=== PATIENT | male | born 1965 | race African-American/Black ===

== ENCOUNTER 2019-03-01 21:18 | Inpatient (IN) | payer OTHER ==
[~2019-03-01] VITALS: Ht 175.3 cm; Wt 92.0 kg
[2019-03-01 21:25] VITALS: BP 184/90
[2019-03-01 21:38] LABS: HEMATOCRIT 44.4 % (42.0-52.0); HEMOGLOBIN 15.1 gm/dL (14.0-18.0); MCH 29.8 pg (26.0-34.0); MCHC 33.9 g/dL (28.0-37.0); MCV 87.8 fL (80.0-100.0); MPV 9.2 fl. (7.2-11.1); NUCLEATED RBCS 0 /100WBC; PLATELET COUNT* 189 thou/uL (150-400); RBC 5.06 mil/uL (4.50-6.00); RDW-CV 13.4 % (10.5-14.5); WBC 5.4 thou/uL (4.0-11.0)
[2019-03-01 21:45] LABS: ANION GAP 7 mmol/L (7-16); BUN 8 mg/dL (7-18); CALCIUM 8.8 mg/dL (8.5-10.1); CHLORIDE 107 mmol/L (98-107); CO2 29 mmol/L (21-32); CREATININE 1.1 mg/dL (0.6-1.3); GLUCOSE 152 mg/dL (70-99); SODIUM 143 mmol/L (136-145)
[2019-03-01 21:58] LABS: ALBUMIN 3.4 g/dL (3.4-5.0); ALKALINE PHOSPHATASE 106 U/L (46-116); LIPASE 157 U/L (73-393); NT-PRO BRAIN NAT PEPTIDE 27 pg/mL (<300); SGOT 25 U/L (15-37); SGPT 41 U/L (30-65); TOTAL BILIRUBIN 0.2 mg/dL (<0.1-1.0); TOTAL PROTEIN 6.6 g/dL (6.4-8.2); TROPONIN-I LEVEL <0.06 ng/mL (<0.06)
[2019-03-01 22:02] LABS: PROTIME 10.5 Seconds (9.20-11.50)
[2019-03-01 22:46] LABS: ABSOLUTE BASOPHILS 0.1 thou/uL (0.0-0.2); ABSOLUTE LYMPHOCYTES 2.4 thou/uL (0.8-5.3); ABSOLUTE MONOCYTES 0.3 thou/uL (0.0-1.2); ABSOLUTE NEUTROPHILS 1.7 thou/uL (1.6-8.1); PLATELET ESTIMATE ADEQUATE
[2019-03-02] VITALS (7 sets, daily range): BP systolic 115–150; BP diastolic 66–78
[2019-03-02 00:33] LABS: BE 0.2 mmol/L (-2 to +3); PCO2 43.8 mmHg (35.0-45.0); PO2 65.3 mmHg (75.0-100.0); pH 7.383 (7.340-7.450)
[2019-03-02] MEDS ORDERED: SPIRONOLACT/HCT1 TA1 PO (03:31)
[2019-03-02] MEDS ORDERED: NORVASC5 M1 PO (03:32)
[2019-03-02] MEDS ORDERED: FLOMAX0.4 MG PO (03:32)
--- NOTE | 2019-03-02 04:32 | NUR ---
RECEIVED PT FROM ER PER CART ACCOMPANIED BY DAVIAN CHAN AT APPROX 0120. PT IS AWAKE AND ORIENTED X4. PUNCH MACHINE OPERATOR TRACING SR. VSS ON BIPAP, spO2 97%. NO DESATURATIONS NOTED. ADMISSION ASSESSMENT DONE AND CHARTED. PT DENIES PAIN OF THIS TIME. PT ORIENTED ON ROOM SET UP AND THE USE OF CALL LIGHT. BED LOCKED AND IN LOWEST POSITION. BIPAP WELL TOLERATED. PT IS ABLE TO SLEEP MOST OF THE NIGHT. HOURLY ROUNDING DONE FOR SAFETY.
--- NOTE | 2019-03-02 10:44 | EKG ---
[place] [address] ELECTROCARDIOGRAM REPORT Name: RONNIE RAMOS Room: [address] ADM IN [facility].#: [id number] Admission: 03/02/19 Attend Phys: Michele Pineda MD Discharge: Date of : 63 Report #: [id number] THIS REPORT FOR: //name// [facility] ED Test Date: 2019-03-01 Test Time: 21:21:39 Pat Name: RONNIE RAMOS Department: Room: [facility] Gender: M Fisher [place]: AJ : 1965 Requested By: Andra Schaefer Order Number: [id number] MD: Claudio Martinez Measurements Intervals [place] Rate: 60 P: -38 IA: 165 QRS: 19 QRSD: 87 T: -28 QT: 367 QTc: 367 Interpretive Statements Sinus rhythm Anteroseptal infarct, old, possible Borderline T abnormalities, inferior leads Baseline wander in lead(s) V6 No previous ECG available for comparison Electronically Signed On 03-02-2019 10:43:57 CDT by Claudio Martinez [email or web address] <ELECTRONICALLY SIGNED> By: Claudio Martinez MD, FACC 03/02/19 1043 20 20 Claudio Martinez MD, FAC /EPI
--- NOTE | 2019-03-02 12:00 | NUR ---
ASSUMED CARE OF PT AT 0730. PT RESTING IN BED WITH BIPAP IN PLACE. 02 SAT 98%. PT A&0X4, DENIES ANY PAIN. TRACING SR ON THE WAREHOUSE REPRESENTATIVE. PT UP AD ANGELA. PT TITRATED TO 2L NC FOR MEALS AND IS TOLERATING 2L NC WELL. DENIES ANY SHORTNESS OF BREATH. PT GOAL FOR TODAY IS TITRATE OXYGEN, IV STEROIDS ABX, AM ASSESSMENT CHARTED. MEDICATIONS PER MAR. PT REPOSITIONS SELF. HOURLY ROUNDING OBSERVED. BED IN LOW POSITION. CALL LIGHT WITHIN REACH. WILL CONTINUE PLAN OF CARE.
[2019-03-02 12:28] LABS: AMP/METHAMP Negative (Negative); BARBITURATES Negative (Negative); BENZODIAZEPINES Negative (Negative); COCAINE Negative (Negative); METHADONE Negative (Negative); OPIATES Negative (Negative); PCP Negative (Negative); THC Negative (Negative)
--- NOTE | 2019-03-02 17:06 | NUR ---
NO ACUTE CHANGES THROUGHOUT SHIFT. REFER TO CHARTING. PT TITRATED TO ROOM AIR. DENIES ANY SHORTNESS OF BREATH. CONTINUES TO TRACE SR/ST ON THE PERFORMING ARTS TECHNICIANS. RATE LOW 100'S. PT UP AD ANGELA IN ROOM. PROGRESSING TOWARDS GOALS. VISITORS AT BEDSIDE THROUGHOUT SHIFT. MEDICATIONS PER AUG. PT REPOSITIONS SELF. HOURLY ROUNDING OBSERVED. BED IN LOW POSITION. CALL LIGHT WITHIN REACH, WILL CONTINUE PLAN OF CARE.
[2019-03-03] VITALS: BP 128/70
[2019-03-03 04:00] VITALS: BP 117/64
--- NOTE | 2019-03-03 04:33 | NUR ---
ASSUMED PT CARE AT APPROX 1930. PT IS AWAKE AND ORIENTED X4. VSS ON ROOM AIR. CONFIDENTIAL SECRETARY IN PLACE TRACING SR/ST. THERE IS 1 SHORT NON SUSTAINED EPISODE OF ST AT 165. PT DENIES CHEST PAIN AND SOA. ASSESSMENT DONE AND CHARTED. PT IS ABLE TO SLEEP MOST OF THE NIGHT. CALL LIGHT WITHIN REACH. HOURLY ROUNDING DONE FOR PT SAFETY.
[2019-03-03 05:23] LABS: HEMATOCRIT 43.6 % (42.0-52.0); HEMOGLOBIN 14.6 gm/dL (14.0-18.0); MCH 29.2 pg (26.0-34.0); MCHC 33.6 g/dL (28.0-37.0); MCV 87.2 fL (80.0-100.0); NUCLEATED RBCS 0 /100WBC; PLATELET COUNT* 198 thou/uL (150-400); RDW-CV 14.2 % (10.5-14.5); WBC 15.3 thou/uL (4.0-11.0)
[2019-03-03 06:31] LABS: ABSOLUTE LYMPHOCYTES 1.1 thou/uL (0.8-5.3); ABSOLUTE MONOCYTES 0.3 thou/uL (0.0-1.2); ABSOLUTE NEUTROPHILS 13.9 thou/uL (1.6-8.1); ANISOCYTOSIS 1+; PLATELET ESTIMATE ADEQUATE; POIKILOCYTOSIS 1+
[2019-03-03 08:00] VITALS: BP 129/77
[2019-03-03 12:00] VITALS: BP 154/86
--- NOTE | 2019-03-03 13:50 | NUR ---
Pt is A&O. Resides at home. Active and independent. No DME. No hx of HH or SNF. Goal is home at ak. Following.
[2019-03-03 16:00] VITALS: BP 139/81
--- NOTE | 2019-03-03 16:06 | 2DMMODE ---
[place] [address] 2 D/M-MODE ECHOCARDIOGRAM Name: RONNIE RAMOS Room: [address] IN [facility]#: [id number] Admission: 03/02/19 Attend Phys: Michele Pineda, Discharge: Date of : 63 Date of Service: 03/03/19 1606 Report #: [id number] THIS REPORT FOR: //name// APPROVED REPORT Study performed: 03/03/2019 14:50:18 EXAM: Comprehensive 2D, Doppler, and color-flow Echocardiogram Patient Location: In-Patient Room #: [facility] BSA: 2.07 HR: 103 bpm BP: 154/86 mmHg Other Information Study Quality: Good Indications Dyspnea 2D Dimensions IVSd: 11.92 (7-11mm) LVOT Diam: 20.18 (18-24mm) LVDd: 45.69 mm PWd: 10.12 (7-11mm) Ascending Ao: 29.43 (22-36mm) LVDs: 23.95 (25-40mm) Aortic Root: 28.26 mm Volumes Left Atrial Volume (Systole) LA ESV Index: 21.40 mL/m2 Aortic Valve AoV Peak Olman.: 1.83 m/s AO Peak Gr.: 13.35 mmHg LVOT Max P.15 mmHg AO Mean Gr.: 6.68 mmHg LVOT Mean P.97 mmHg LVOT Max V: 1.43 m/s AO V2 VTI: 28.65 cm LVOT Mean V: 0.91 m/s YOLA (VTI): 2.89 cm2 LVOT V1 VTI: 25.90 cm Mitral Valve E/A Ratio: 0.70 MV Decel. Time: 283.86 ms MV E Max Olman.: 0.64 m/s MV PHT: 82.32 [place] [address] 2 D/M-MODE ECHOCARDIOGRAM Name: RONNIE RAMOS Room: [address] IN ..#: [id number] Admission: 03/02/19 Attend Phys: Michele Pineda, Discharge: Date of : 63 Date of Service: 03/03/19 1606 Report #: [id number] MVA (PHT): 2.67 cm2 TDI E/Lateral E': 4.92 E/Medial E': 6.40 Medial E' Olman.: 0.10 m/s Lateral E' Olman.: 0.13 m/s Pulmonary Valve PV Peak Olman.: 1.07 m/s PV Peak Gr.: 4.60 mmHg Tricuspid Valve RAP Estimate: 5.00 mmHg TR Peak Gr.: 24.22 mmHg RVSP: 29.22 mmHg PA Pressure: 29.22 mmHg Left Ventricle The left ventricle is normal size. There is normal LV segmental wall motion. There is normal left ventricular wall thickness. Left ventricular systolic function is normal. The left ventricular ejection fraction is within the normal range. LVEF is 60-65%. Grade I - abnormal relaxation pattern. Right Ventricle The right ventricle is normal size. The right ventricular systolic function is normal. Atria The left atrium size is normal. The right atrium size is normal. Aortic Valve The aortic valve is normal in structure. No aortic regurgitation is present. There is no aortic valvular stenosis. Mitral Valve The mitral valve is normal in structure. Trace mitral regurgitation. No evidence of mitral valve stenosis. Tricuspid Valve The tricuspid valve is normal in structure. Mild tricuspid regurgitation. estimated pa pressur 30 mm Hg Pulmonic Valve The pulmonary valve is normal in structure. There is no pulmonic [place] [address] 2 D/M-MODE ECHOCARDIOGRAM Name: RONNIE RAMOS Room: [address]#: [id number] Admission: 03/02/19 Attend Phys: Michele Pineda, Discharge: Date of : 63 Date of Service: 03/03/19 1606 Report #: [id number] Great Vessels The aortic root is normal in size. IVC is normal in size and collapses >50% with inspiration. Pericardium There is no pericardial effusion. <Conclusion> Left ventricular systolic function is normal. The left ventricular ejection fraction is within the normal range. <ELECTRONICALLY SIGNED> By: Mann Beckford MD, [facility] 03/03/19 1606 05 160 Mann Beckford MD, FAC /INF
--- NOTE | 2019-03-03 19:39 | NUR ---
ASSUMED PT CARE AROUND 0700. PT NOTED TO BE PLEASANT WITH NO C/O PAIN OR DISCOMFORT. ASSESSMENT COMPLETED ET CHARTED. HOURLY ROUNDS COMPLETE. PT IS CONCERNED ABOUT GETTING OUT IN TIME TO BE IN THE [facility] FOR HIS [place] IN A FEW DAYS. TO BE STAYED BY HIS SIDE MOST OF THE DAY. PT IS COMPLIANT WITH HIS CARES. TRACED SR ON THE CARD MONITOR THIS SHIFT.
[2019-03-03 20:00] VITALS: BP 143/84
[2019-03-04 00:16] VITALS: BP 137/78
--- NOTE | 2019-03-04 04:44 | NUR ---
PT A&O X4, MAINTAINED O2 SAT >92% ON ROOM AIR DURING SHIFT. NO C/O ON SOA OR EXACERBATION OF SYMPTOMS. PT HAD NO C/O OF PAIN OR DISCOMFORT AND STATED HE IS FEELING MUCH BETTER AND IS LOOKING FORWARD TO DISCHARGE. SLEPT WELL THROUGH OUT NIGHT, VOICED NO CONCERNS, ALL NEEDS HAVE BEEN MET AT THIS TIME. RESTING IN BED WITH CALL LIGHT WITHIN REACH.
[2019-03-04 08:00] VITALS: BP 139/82
[2019-03-04] MEDS ORDERED: PROTONIX40 M1 PO (10:32)
[2019-03-04] MEDS ORDERED: LEVAQUIN 500 M500 M2 PO (10:32)
[2019-03-04] MEDS ORDERED: VENTOLIN HFA 1818 GM INH (10:33)
[2019-03-04] MEDS ORDERED: SYMBICORT160 MCG/4. INH (10:33)
[2019-03-04] MEDS ORDERED: PREDNISONE 10 M10 MG PO (10:34)
[2019-03-04] MEDS ORDERED: FLOMAX0.4 MG PO (10:34)
[2019-03-04 10:42] VITALS: BP 139/82
== END 2019-03-04 12:02 | disposition home or self-care (01) | DRG 189 ==
LOC: M.ERS 21:18 → M.TBA-ER 03-02 00:08 → M.2W 03-02 00:08
PROVIDERS: Emergency Medicine; ADMIT Internal Medicine
PROC: 5A09357 Assistance with Respiratory Ventilation, Less than 24 Consecutive Hours, Continuous Positive Airway Pressure (ICD-10-PCS; principal; 2019-03-02)
DX: J96.01 Acute respiratory failure with hypoxia (principal); J45.901 Unspecified asthma with (acute) exacerbation; E11.9 Type 2 diabetes mellitus without complications; I10 Essential (primary) hypertension; Z88.8 Allergy status to other drugs, medicaments and biological substances; Z88.0 Allergy status to penicillin; Z91.013 Allergy to seafood; Z23 Encounter for immunization

== ENCOUNTER 2021-06-29 19:18 | Emergency (ER) | payer OTHER ==
[~2021-06-29] VITALS: Ht 175.3 cm; Wt 87.5 kg
[~2021-06-29 19:18] MED LIST: FLOMAX0.4 MG PO; LEVAQUIN 500 M500 M2 PO; NORVASC5 M1 PO; PREDNISONE 10 M10 MG PO; PROTONIX40 M1 PO; SPIRONOLACT/HCT1 TA1 PO; SYMBICORT160 MCG/4. INH; VENTOLIN HFA 1818 GM INH
[2021-06-29] MEDS ORDERED: METFORMIN HCL500 M3 PO (19:57)
[2021-06-29 22:13] VITALS: BP 149/93
== END 2021-06-29 22:46 | disposition home or self-care (01) ==
LOC: M.ERS 19:18
DX: U07.1 COVID-19 (principal); I10 Essential (primary) hypertension; J45.909 Unspecified asthma, uncomplicated; Z79.51 Long term (current) use of inhaled steroids; Z79.84 Long term (current) use of oral hypoglycemic drugs; Z79.899 Other long term (current) drug therapy; Z88.0 Allergy status to penicillin; Z88.8 Allergy status to other drugs, medicaments and biological substances; Z91.013 Allergy to seafood